=== PATIENT | male | born 1985 | race Caucasian/White ===

== ENCOUNTER 2016-11-07 18:23 | Emergency (ER) | payer SELFPAY ==
[2016-11-07 18:28] VITALS: BP 105/75; PULSE 103; TEMP 98; BMI 19.5
[2016-11-07] MEDS ORDERED: ACETAMINOPHEN 500 MG TABLET (FP) ONE (19:14)
[2016-11-07] MEDS ORDERED: LIDOCAINE HCL 2% JELLY 10 ML CARTRIDGE ONE (19:14)
[2016-11-07] MEDS ORDERED: BACITRACIN 30 GM TUBE TOPICAL OINTMENT ONE (19:43)
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
== END 2016-11-07 20:43 | disposition home or self-care (01) ==
LOC: JERFT 18:23
PROC: 0HQ0XZZ Repair Scalp Skin, External Approach (ICD-10-PCS; principal; 2016-11-07)
DX: S09.90XA Unspecified injury of head, initial encounter (principal); S01.01XA Laceration without foreign body of scalp, initial encounter; W03.XXXA Other fall on same level due to collision with another person, initial encounter; Y93.89 Activity, other specified; Y92.9 Unspecified place or not applicable
CPT/HCPCS: 99281-25

== ENCOUNTER 2016-11-17 19:31 | Emergency (ER) | payer SELFPAY ==
[2016-11-17 19:50] VITALS: BP 110/69; PULSE 75; TEMP 98; BMI 20.2
--- NOTE | 2016-11-17 19:57 | PDOC ---
Suture Removal/Wound Check HPI - History of Present Illness Chief Complaint: Suture/Staple Removal(Here) Stated Complaint: SUTURE REMOVAL Time Seen by Provider: 11/17/16 19:54 History Source: Yes: Patient Exam Limitations: Yes: No Limitations Treated at: [facility] ED - Previous ED Treatment Type of procedure performed on last visit: Yes: Laceration Repair Tetanus Immunization: Yes: Up to Date Antibiotics Prescribed: Yes Past History - Past Medical History Allergies/Adverse Reactions: Allergies No Known Allergies Allergy (Verified 11/17/16 19:50) Home Medications: Ambulatory Orders NK [No Known Home Medication] 11/17/16 - Social History Smoking Status: Never smoked Suture Removal/Wound Check PE - Physical Exam Laceration/Wound Check Symptoms: reports: None Current Severity Level: None Maximum Severity Level: None Pain Localization: None Location of Laceration/Wound: right: Head (5 nikita intact midpoint occiput) *Review of Systems - Review of Systems Able to Perform ROS?: Yes Constitutional: Yes: See HPI. No: Symptoms Reported, Malaise HEENTM: Yes: See HPI, Other (5 nikita to scalp intact, without complaints, bleeding or swelling). No: Symptoms Reported, Eye Pain Integumentary: Yes: Symptoms Reported, See HPI, Lesions Neurological: Yes: See HPI. No: Symptoms reported, Headache All Other Systems: Reviewed and Negative Medical Decision Making - Medical Decision Making 11/17/16 19:57 5 nikita removed without incident *DC/Admit/Observation/Transfer Diagnosis at time of Disposition: Removal of nikita - Discharge Dispostion Disposition: HOME Condition at time of disposition: Stable Admit: No
== END 2016-11-17 20:11 | disposition home or self-care (01) ==
LOC: JERFT 19:31 → SUPCPDRO 19:31 → JERFT 20:11
DX: Z48.02 Encounter for removal of sutures (principal)
CPT/HCPCS: 99281-25